=== PATIENT | female | born 1990 | race Caucasian/White ===

== ENCOUNTER 2023-06-08 13:45 | Emergency (ER) | payer SELFPAY ==
[~2023-06-08] VITALS: Ht 167.6 cm; Wt 46.4 kg
[2023-06-08 13:50] VITALS: TEMP 98.4
[2023-06-08] MEDS ORDERED: AMOXICILLIN 50500 MG PO (14:30)
[2023-06-08] MEDS ORDERED: NORCO 325 MG-51 TAB PO (14:30)
[2023-06-08 14:43] VITALS: BP 110/73; PULSE 68
== END 2023-06-08 14:44 | disposition home or self-care (01) ==
LOC: COL.ER 13:45
DX: K02.9 Dental caries, unspecified (principal)

== ENCOUNTER 2023-08-10 04:47 | Emergency (ER) | payer SELFPAY ==
[~2023-08-10] VITALS: Ht 167.6 cm; Wt 47.3 kg
[~2023-08-10 04:47] MED LIST: AMOXICILLIN 50500 MG PO; FLEXERIL 1010 MG/TAB PO; MOTRIN 800800 MG/TAB PO; NORCO 325 MG-51 TAB PO
[2023-08-10 04:59] VITALS: TEMP 98.1
[2023-08-10] MEDS ORDERED: NS 1,000 ML IV ONE (05:15)
[2023-08-10 05:25] LABS: BASO # 0.1 K/mm3 (0.0-0.2); BASO % 0.7 % (0.0-2.0); EOS # 0.2 K/mm3 (0.0-0.7); EOS % 2.1 % (0.0-4.0); GRAN % 70.8 % (42.2-75.2); HEMATOCRIT 37.7 % (37.0-47.0); LYMPH # 1.6 K/mm3 (1.2-3.4); LYMPH % 18.3 % (20.0-51.0); MEAN CELL VOLUME 88 fl (80.0-100.0); MEAN CORPUSCULAR HEMOGLOBIN 28 pg (27-31); MEAN CORPUSCULAR HGB CONC 32 g/dl (33.0-37.0); MEAN PLATELET VOLUME 9.8 fl (7.4-10.4); MONO # 0.7 K/mm3 (0.1-0.6); MONO % 7.9 % (1.7-9.3); PLATELET COUNT 217 K/mm3 (130-400); RED BLOOD COUNT 4.28 M/mm3 (4.10-5.30); REDCELL DISTRIBUTION WIDTH-CV 14.4 % (11.5-14.5)
[2023-08-10] MEDS ORDERED: Ondansetron 4 MG/2 ML VIAL IV ONE (05:30)
[2023-08-10 05:38] LABS: C-REACTIVE PROTEIN 0.35 mg/dL (0.00-0.50); CALCIUM 9.1 mg/dL (8.4-10.2); CREATININE, serum 0.71 mg/dL (0.57-1.11); POTASSIUM 3.6 mEq/L (3.5-4.5)
[2023-08-10] MEDS ORDERED: Iohexol 300 - 100 ML VIAL IV ONE (05:49)
[2023-08-10] MEDS ORDERED: Acetaminophen 500 MG TAB PO ONE (06:15)
[2023-08-10 06:26] LABS: ERYTHROCYTE SEDIMENTATION RATE 4 mm/hr (0-20)
[2023-08-10 08:50] VITALS: BP 108/74; PULSE 67
== END 2023-08-10 08:50 | disposition short-term general hospital (02) ==
LOC: COL.ER 04:47
PROVIDERS: Emergency Medicine
DX: L03.211 Cellulitis of face (principal); K04.7 Periapical abscess without sinus; Z87.891 Personal history of nicotine dependence
CPT/HCPCS: J0295; J2405; J7030; Q9967

== ENCOUNTER 2024-01-13 09:53 | Emergency (ER) | payer MEDICAID ==
[~2024-01-13] VITALS: Ht 167.6 cm; Wt 46.4 kg
[2024-01-13 09:57] VITALS: TEMP 97.6
[2024-01-13] MEDS ORDERED: Ondansetron 4 MG/2 ML VIAL IV ONE (10:15)
[2024-01-13] MEDS ORDERED: NS 1,000 ML IV ONE (10:15)
[2024-01-13 10:25] LABS: COLLECTION METHOD CLEAN CATCH
[2024-01-13 10:32] LABS: PH 6.5 (5.0-8.5); URINE APPEARANCE CLOUDY (CLEAR/HAZY); URINE BLOOD 1+ (NEGATIVE); URINE COLOR YELLOW (YELLOW); URINE GLUCOSE NEGATIVE (NEGATIVE); URINE KETONE TRACE (NEGATIVE); URINE NITRATE NEGATIVE (NEGATIVE); URINE PROTEIN(semi-quant) 1+ (NEGATIVE)
[2024-01-13 10:33] LABS: BASO % 0.5 % (0.0-2.0); GRAN # 6.8 K/mm3 (1.4-6.5); GRAN % 85.1 % (42.2-75.2); HEMATOCRIT 38.7 % (37.0-47.0); HEMOGLOBIN 12.8 g/dl (12.5-16.0); LYMPH # 0.3 K/mm3 (1.2-3.4); MEAN CELL VOLUME 89 fl (80.0-100.0); MEAN CORPUSCULAR HEMOGLOBIN 29 pg (27-31); MEAN CORPUSCULAR HGB CONC 33 g/dl (33.0-37.0); MEAN PLATELET VOLUME 9.5 fl (7.4-10.4); MONO # 0.8 K/mm3 (0.1-0.6); MONO % 10.1 % (1.7-9.3); PLATELET COUNT 201 K/mm3 (130-400); RED BLOOD COUNT 4.35 M/mm3 (4.10-5.30); REDCELL DISTRIBUTION WIDTH-CV 13.3 % (11.5-14.5)
[2024-01-13 10:48] LABS: ALBUMIN 4.3 g/dL (3.5-5.0); BILIRUBIN,TOTAL 0.5 mg/dL (0.2-1.2); CALCIUM 9.5 mg/dL (8.4-10.2); CREATININE, serum 0.71 mg/dL (0.57-1.11); POTASSIUM 3.7 mEq/L (3.5-4.5); TOTAL PROTEIN 7.6 g/dl (6.2-8.1)
[2024-01-13] MEDS ORDERED: ZOFRAN 4MG T4 MG/TAB PO (11:03)
[2024-01-13 11:45] VITALS: BP 106/61; PULSE 71
== END 2024-01-13 11:57 | disposition home or self-care (01) ==
LOC: COL.ER 09:53
PROVIDERS: Physician Assistant
DX: R11.2 Nausea with vomiting, unspecified (principal); Z20.822 Contact with and (suspected) exposure to COVID-19
CPT/HCPCS: J2405; J7030